=== PATIENT | male | born 1955 | race Caucasian/White ===

== ENCOUNTER 2017-03-30 11:20 | Emergency (ER) | payer OTHER, BC ==
[2017-03-30 11:44] VITALS: PULSE 87; TEMP 98.4; BMI 29.5
[2017-03-30] MEDS ORDERED: DIPHTH,PERTUSS(ACELL),TET 0.5 ML DISP.SYRIN IM ONE (12:07)
--- NOTE | 2017-03-30 12:10 | PDOC ---
History of Present Illness - General Chief Complaint: Laceration Stated Complaint: LACERATION TO RIGHT SIDE OF SCALP Time Seen by Provider: 03/30/17 11:42 - History of Present Illness Initial Comments: 03/30/17 13:06 Chief complaint: Scalp laceration History of present illness: Patient was bending down to fix a toilet, stood up and bumped his head on the corner of a cabinet. Small amount of bleeding. No other injuries Review of systems: Denies lightheadedness, dizziness, vertigo, headache, visual or focal neurologic symptoms, unsteadiness of gait, chest pain, shortness of breath, abdominal pain. Past medical history: Reviewed and noncontributory Social/family history reviewed and noncontributory Physical exam: Alert and oriented well-developed well-nourished no acute distress cheerful and cooperative Head: 2 cm laceration crown of scalp to the right of midline. Bleeding has subsided. There is no tenderness, swelling, hematoma, or supple defect in the table of the skull PERRLA 4 mm, fundi benign with sharp disc margins and good central venous pulsations ENT clear Neck without tenderness or deformity, full range of motion without pain Chest clear CV regular without murmur rub or gallop Abdomen benign Neurological C2 to 12 intact. Strength full and symmetric. No focal sensory or motor deficits. Gait stable and unimpaired Impression: Superficial laceration of the scalp, no indication of serious head injury Plan: Repair of laceration and follow-up as indicated. Past History - Past Medical History Allergies/Adverse Reactions: Allergies Allergy/AdvReac Type Severity Reaction Status Date / Time No Known Allergies Allergy Verified 03/30/17 11:22 Home Medications: Ambulatory Orders NK [No Known Home Medication] 03/30/17 COPD: No GI Disorders: Yes (ACID REFLEX) Other medical history: HEAD INJURY/ SKULL FRACTURE - Immunization History Immunization Up to Date: Yes - Suicide/Smoking/Psychosocial Hx Smoking Status: No Smoking History: Current some day smoker Have you smoked in the past 12 months: Yes Number of Cigarettes Smoked Daily: 0 Cigars Per Day: 1 Information on smoking cessation initiated: No Hx Alcohol Use: No Drug/Substance Use Hx: No Substance Use Type: None *Physical Exam - Vital Signs Last Vital Signs Temp Pulse Resp BP Pulse Ox 98.4 F 87 16 160/107 100 03/30/17 11:21 03/30/17 11:21 03/30/17 11:21 03/30/17 11:21 03/30/17 11:21 Medical Decision Making - Medical Decision Making 03/30/17 13:09 Procedure note: Repair of laceration scalp Skin was prepped with Betadine. Wound was thoroughly scrubbed and irrigated with normal saline. Explored. Superficial. Further washing and irrigation, dried, wound edges approximated with 2 skin milton. Tolerated well. Bacitracin. 2 recheck immediately if sign of infection, otherwise avoid vigorous combing, brushing, or washing and return for staple removal in one week. Fully ambulatory and neurologically intact, in no pain or other distress upon discharge to follow-up as recommended *DC/Admit/Observation/Transfer Diagnosis at time of Disposition: Scalp laceration Qualifiers: Encounter type: initial encounter Qualified Code(s): S01.01XA - Laceration without foreign body of scalp, initial encounter - Discharge Dispostion Disposition: HOME Condition at time of disposition: Improved Admit: No - Referrals - Patient Instructions Printed Discharge Instructions: DI for Laceration Repair, DI for Closed Head Injury Additional Instructions: Keep clean and dry. Dressed daily with bacitracin. Return for recheck if there is any sign of infection. Otherwise return in 7 days for staple removal. If any further symptoms develop return to the emergency room immediately. Most importantly, lightheadedness, dizziness, vertigo, headache, visual symptoms, numbness tingling or weakness in the extremities, unsteadiness of gait. - Post Discharge Activity
[2017-03-30 12:29] VITALS: BP 150/100
== END 2017-03-30 12:28 | disposition home or self-care (01) ==
LOC: FER 11:20
PROC: 0HQ0XZZ Repair Scalp Skin, External Approach (ICD-10-PCS; principal; 2017-03-30)
PROC: 3E0234Z Introduction of Serum, Toxoid and Vaccine into Muscle, Percutaneous Approach (ICD-10-PCS; 2017-03-30)
DX: S01.01XA Laceration without foreign body of scalp, initial encounter (principal); K21.9 Gastro-esophageal reflux disease without esophagitis; F17.210 Nicotine dependence, cigarettes, uncomplicated
CPT/HCPCS: 90715; 99282-25